=== PATIENT | female | born 1985 | race Caucasian/White ===

== ENCOUNTER → 2020-11-29 | Outpatient (CLI) | payer OTHER ==
--- NOTE | 2020-11-29 12:51 | US ---
EXAMINATION TYPE: US kidneys/renal and bladder DATE OF EXAM: 11/29/2020 COMPARISON: NONE CLINICAL HISTORY: N28.9 disorder of kidney and ureter. Renal insufficiency, disorder of the kidney an d ureter. EXAM MEASUREMENTS: Right Kidney: 10.6 x 4.2 x 3.9 cm Left Kidney: 10.0 x 5.1 x 4.5 cm Right Kidney: Hyperechoic focus seen laterally: 0.8 x 0.9 x 0.8 cm. With some shadowing. -Indistinct, round hypoechoic anechoic area seen upper pole: 2.0 x 1.8 x 1.7 cm. Suspect simple thin -walled cyst Left Kidney: No hydronephrosis or masses seen Bladder: Anechoic. Bilateral Jets seen: Yes. IMPRESSION: No hydronephrosis seen bilaterally. Possible 9 mm nonobstructing calculus in the right ki dney upper to midpole level laterally. Suspect 2.0 cm thin-walled cyst upper pole right kidney. Follo w-up CT can be performed to better evaluate above if desired.
== END | disposition home or self-care (01) ==
LOC: RADUSWWP 12:15
PROVIDERS: ATTEND Family Medicine
DX: N28.9 Disorder of kidney and ureter, unspecified (principal)
CPT/HCPCS: 76770